=== PATIENT | male | born 1940 | race Caucasian/White ===

== ENCOUNTER 2017-08-13 11:30 | Outpatient (CLI) | payer MEDICARE, BC ==
[2015-12-08 12:11] VITALS: BMI 26.7
[~2017-08-13 11:30] MED LIST: BAYER CHEWABLE81 MG PO; CLARITIN 10 MG10 MG PO; HYDROCHLOROTHIA25 MG GT; K-DUR20 MEQ PO; MESTINON60 MG PO; MULTIPLE VITAMI1 TA1 PO; STERAPRED DS 1210 MG PO; [UNRECOGNIZED DRUG - OTHER] PO
== END 2017-08-13 23:58 ==
LOC: D.CT 11:30
DX: I65.23 Occlusion and stenosis of bilateral carotid arteries (principal)

== ENCOUNTER → 2018-05-30 08:38 | Outpatient (CLI) | payer MEDICARE, BC ==
[2015-12-08 12:11] VITALS: BMI 26.7
== END | disposition home or self-care (01) ==
LOC: D.US 08:38
DX: I65.23 Occlusion and stenosis of bilateral carotid arteries (principal)

== ENCOUNTER → 2020-06-21 11:29 | Outpatient (CLI) | payer MEDICARE, BC ==
[2015-12-08 12:11] VITALS: BMI 26.7
== END | disposition home or self-care (01) ==
LOC: D.US 11:29
PROVIDERS: ATTEND Internal Medicine Cardiovascular Disease
DX: I65.23 Occlusion and stenosis of bilateral carotid arteries (principal)

== ENCOUNTER → 2020-06-29 08:58 | Outpatient (CLI) | payer MEDICARE, BC ==
[2015-12-08 12:11] VITALS: BMI 26.7
== END | disposition home or self-care (01) ==
LOC: D.CT 08:58
PROVIDERS: ATTEND Internal Medicine Cardiovascular Disease
DX: I65.23 Occlusion and stenosis of bilateral carotid arteries (principal)